=== PATIENT | male | born 1955 | race African-American/Black ===

== ENCOUNTER 2024-05-30 18:18 | Emergency (ER) | payer MEDICARE, OTHER ==
[~2024-05-30] VITALS: Ht 195.6 cm; Wt 122.7 kg
[2024-05-30 18:39] VITALS: BP 147/82; PULSE 100; RESP 18; O2SAT 97
[2024-05-30] MEDS ORDERED: ketorolac trometh. 30mg/ml inj. IM ONE (19:15)
[2024-05-30] MEDS ORDERED: PRED20TA PO (19:19)
[2024-05-30] MEDS ORDERED: ALLO100T PO (19:19)
[2024-05-30] MEDS: dexamethasone sod phosphate 10mg/ml inj IM STA (19:41)
[2024-05-30] MEDS: ketorolac trometh. 30mg/ml inj. IM ONE (19:42)
== END 2024-05-30 19:59 | disposition home or self-care (01) ==
LOC: ER 18:19
DX: M10.9 Gout, unspecified (principal); M79.671 Pain in right foot; M79.672 Pain in left foot
CPT/HCPCS: 96372; 99284; J1100; J1885